=== PATIENT | male | born 1970 | race Caucasian/White ===

== ENCOUNTER 2018-04-08 04:40 | Emergency (ER) | payer BC ==
[2018-04-08] MEDS ORDERED: MORPHINE 4 MG/ML SYR ONE (05:21)
[2018-04-08] MEDS ORDERED: KETOROLAC 30 MG/ML INJ ONE (05:21)
[2018-04-08] MEDS ORDERED: NA CHLORIDE 0.9% 2,000 ML ONE (05:21)
[2018-04-08] MEDS ORDERED: ONDANSETRON 4 MG/2 ML VIAL ONE (05:21)
--- NOTE | 2018-04-08 05:35 | ER ---
Nurse's Notes [facility] Name: Bandar Tabares Age: 47 yrs Sex: Male : 1970 Arrival Date: 04/08/2018 Time: 04:42 Bed 20 Private MD: Diagnosis: Hydronephrosis with renal and ureteral calculous obstruction-4 mm uvj Presentation: 04/08 05:01 Presenting complaint: Patient states: "I woke up yesterday feeling a slight pain in my jd3 back and it got worse throughout the day, it starts in my back and comes around to front.". Transition of care: patient was not received from another setting of care. Onset of symptoms was April 07, 2018. Risk Assessment: Do you want to hurt yourself or someone else? Patient reports no desire to harm self or others. Initial Sepsis Screen: Does the patient meet any 2 criteria? No. Patient's initial sepsis screen is negative. Does the patient have a suspected source of infection? No. Patient's initial sepsis screen is negative. Care prior to arrival: None. 05:01 Method Of Arrival: Wheelchair jd3 05:01 Acuity: JENNIFER 3 jd3 Historical: - Allergies: 05:10 No Known Allergies; jd3 - Home Meds: 05:10 Metoprolol Tartrate Oral [Active]; Vitamin D Oral [Active]; Gas-X oral oral [Active]; jd3 antiacid [Active]; - PMHx: 05:10 reflux; Hypertension; jd3 - PSHx: 05:10 right thumb I\\T\\D MRSA; jd3 - Immunization history:: Adult Immunizations up to date, Flu vaccine is up to date. - Social history:: Smoking status: Patient/guardian denies using tobacco. - Family history:: not pertinent. - Ebola Screening: : Patient negative for fever greater than or equal to 101.5 degrees Fahrenheit, and additional compatible Ebola Virus Disease symptoms. Screenin:10 Abuse screen: Denies threats or abuse. Nutritional screening: No deficits noted. jd3 Tuberculosis screening: No symptoms or risk factors identified. Fall Risk Ambulatory Aid- None/Bed Rest/Nurse Assist (0 pts). Gait- Normal/Bed Rest/Wheelchair (0 pts) Mental Status- Oriented to own ability (0 pts). Total Shukla Fall Scale indicates No Risk (0-24 pts). Assessment: 05:04 General: Appears uncomfortable, Behavior is cooperative, appropriate for age, anxious. jd3 Pain: Complains of pain in left mid back and left low back Pain radiates to suprapubic area Quality of pain is described as sharp, tender, Also complains of nausea. Neuro: Level of Consciousness is awake, alert, obeys commands, Oriented to person, place, time, situation. Cardiovascular: Capillary refill < 3 seconds Patient's skin is warm and dry. Respiratory: Airway is patent Respiratory effort is even, unlabored, Respiratory pattern is regular, symmetrical, Denies shortness of breath. GI: Abdomen is round non-distended, Abd is soft and non tender X 4 quads. Reports lower abdominal pain. : Reports urinary frequency. EENT: No signs and/or symptoms were reported regarding the EENT system. Derm: Skin is intact, Skin is dry, Skin is normal, Skin temperature is warm. Musculoskeletal: Circulation, motion, and sensation intact. Range of motion: intact in all extremities. 06:21 Reassessment: Patient appears in no apparent distress at this time. Patient and/or jd3 family updated on plan of care and expected duration. Pain level reassessed. Patient is alert, oriented x 3, equal unlabored respirations, skin warm/dry/pink. Patient states feeling better. 06:45 Reassessment: Patient appears in no apparent distress at this time. Patient and/or jd3 family updated on plan of care and expected duration. Pain level reassessed. Patient is alert, oriented x 3, equal unlabored respirations, skin warm/dry/pink. Patient states feeling better. Vital Signs: 05:03 BP 114 / 73; Pulse 90; Resp 20 S; Temp 98.6(O); Pulse Ox 100% on R/A; Weight 113.4 kg jd3 (R); Height 6 ft. 2 in. (187.96 cm) (R); Pain 9/10; 06:23 BP 120 / 65; Pulse 67; Resp 16 S; Pulse Ox 97% on R/A; Pain 3/10; jd3 06:50 Pain 3/10; jd3 05:03 Body Mass Index 32.10 (113.40 kg, 187.96 cm) d3 ED Course: 04:42 Patient arrived in ED. ag3 04:50 Scotty Naranjo MD is Attending Physician. terrence 05:01 Julio Olivera, RICK is Primary Nurse. jd3 05:03 Triage completed. jd3 05:04 Arm band placed on. jd3 05:10 Patient has correct armband on for positive identification. Bed in low position. Call jd3 light in reach. Side rails up X2. Adult w/ patient. 05:[address] via stretcher. kw1 05:30 Inserted saline lock: 18 gauge in right antecubital area, using aseptic technique. jd3 Blood collected. 05:32 CT Stone Protocol In Process Unspecified. EDMS 05:34 CT completed. Patient tolerated procedure well. Patient moved back from [place]. kw1 05:34 Shakir Mckinnon MD is Referral Physician. bb 06:45 No provider procedures requiring assistance completed. IV discontinued, intact, jd3 bleeding controlled, No redness/swelling at site. Pressure dressing applied. Administered Medications: 05:21 Drug: TORadol 30 mg Route: IVP; Site: right antecubital; jd3 06:50 Follow up: Response: No adverse reaction jd3 05:21 Drug: morphine 4 mg Route: IVP; Site: right antecubital; jd3 06:50 Follow up: Pain 3/10 Adult; Response: No adverse reaction; Pain is decreased jd3 05:21 Drug: Zofran 4 mg Route: IVP; Site: right antecubital; jd3 06:50 Follow up: Response: No adverse reaction jd3 06:05 Drug: NS 0.9% 1000 ml Route: IV; Rate: 1 bolus; Site: right antecubital; jd3 06:50 Follow up: Response: No adverse reaction; IV Status: Completed infusion; IV Intake: jd3 1000ml 06:05 Drug: NS 0.9% 1000 ml Route: IV; Rate: 125 ml/hr; Site: right antecubital; jd3 06:51 Follow up: Response: No adverse reaction; IV Status: Order to discontinue infusion jd3 06:38 Drug: Flomax 0.4 mg Route: PO; jd3 06:50 Follow up: Response: No adverse reaction; Medication administered at discharge. jd3 Intake: 06:50 IV: 1000ml; Total: 1000ml. jd3 Outcome: 05:34 Discharge ordered by . bb 06:49 Discharged to home ambulatory, with family. jd3 06:49 Condition: stable 06:49 Discharge instructions given to patient, family, Instructed on discharge instructions, follow up and referral plans. medication usage, Demonstrated understanding of instructions, follow-up care, medications, Prescriptions given X 4. 06:51 Patient left the ED. jd3 Signatures: Dispatcher [employer] EDMS Scotty Naranjo MD MD cha Ballard, Brenda, RN RN bb Davies, Jonathon, RN RN jd3 Wilhelm, Kimberly kw1 Carole Asher3
--- NOTE | 2018-04-08 05:35 | EDPHYS ---
Physician Documentation [facility] Name: Bandar Tabares Age: 47 yrs Sex: Male : 1970 Arrival Date: 04/08/2018 Time: 04:42 Bed 20 Private MD: ED Physician Scotty Naranjo HPI: 04/08 05:02 This 47 yrs old Male presents to ER via Unassigned with complaints of Back terrence Pain. 05:02 The patient presents with pain that is acute, with no known mechanism of injury. The terrence symptoms are located in the left low back and left mid back. Onset: The symptoms/episode began/occurred just prior to arrival, this morning. The pain radiates to the left low back and left mid back. Associated signs and symptoms: Pertinent positives: nausea, vomiting, weakness. Modifying factors: The patient symptoms are alleviated by nothing, the patient symptoms are aggravated by nothing. Severity of symptoms: At their worst the symptoms were moderate, severe, in the emergency department the symptoms are unchanged. The patient has not experienced similar symptoms in the past. Historical: - Allergies: 05:10 No Known Allergies; jd3 - Home Meds: 05:10 Metoprolol Tartrate Oral [Active]; Vitamin D Oral [Active]; Gas-X oral oral [Active]; jd3 antiacid [Active]; - PMHx: 05:10 reflux; Hypertension; jd3 - PSHx: 05:10 right thumb I\T\D MRSA; jd3 - Immunization history:: Adult Immunizations up to date, Flu vaccine is up to date. - Social history:: Smoking status: Patient/guardian denies using tobacco. - Family history:: not pertinent. - Ebola Screening: : Patient negative for fever greater than or equal to 101.5 degrees Fahrenheit, and additional compatible Ebola Virus Disease symptoms. ROS: 05:02 Constitutional: Negative for fever, chills, and weight loss, Eyes: Negative for injury, terrence pain, redness, and discharge, ENT: Negative for injury, pain, and discharge, Neck: Negative for injury, pain, and swelling, Cardiovascular: Negative for chest pain, palpitations, and edema, Respiratory: Negative for shortness of breath, cough, wheezing, and pleuritic chest pain, Abdomen/GI: Negative for abdominal pain, nausea, vomiting, diarrhea, and constipation, : Negative for injury, bleeding, discharge, and swelling, MS/Extremity: Negative for injury and deformity, Skin: Negative for injury, rash, and discoloration, Neuro: Negative for headache, weakness, numbness, tingling, and seizure, Psych: Negative for depression, anxiety, suicide ideation, homicidal ideation, and hallucinations, Allergy/Immunology: Negative for hives, rash, and allergies, Endocrine: Negative for neck swelling, polydipsia, polyuria, polyphagia, and marked weight changes, Hematologic/Lymphatic: Negative for swollen nodes, abnormal bleeding, and unusual bruising. 05:02 Back: Positive for decreased range of motion, flank pain, on the left. Exam: 05:02 Constitutional: This is a well developed, well nourished patient who is awake, alert, terrence and in no acute distress. Head/Face: Normocephalic, atraumatic. Eyes: Pupils equal round and reactive to light, extra-ocular motions intact. Lids and lashes normal. Conjunctiva and sclera are non-icteric and not injected. Cornea within normal limits. Periorbital areas with no swelling, redness, or edema. ENT: Nares patent. No nasal discharge, no septal abnormalities noted. Tympanic membranes are normal and external auditory canals are clear. Oropharynx with no redness, swelling, or masses, exudates, or evidence of obstruction, uvula midline. Mucous membranes moist. Neck: Trachea midline, no thyromegaly or masses palpated, and no cervical lymphadenopathy. Supple, full range of motion without nuchal rigidity, or vertebral point tenderness. No Meningismus. Chest/axilla: Normal chest wall appearance and motion. Nontender with no deformity. No lesions are appreciated. Cardiovascular: Regular rate and rhythm with a normal S1 and S2. No gallops, murmurs, or rubs. Normal PMI, no JVD. No pulse deficits. Respiratory: Lungs have equal breath sounds bilaterally, clear to auscultation and percussion. No rales, rhonchi or wheezes noted. No increased work of breathing, no retractions or nasal flaring. Abdomen/GI: Soft, non-tender, with normal bowel sounds. No distension or tympany. No guarding or rebound. No evidence of tenderness throughout. Male : Normal genitalia with no discharge or lesions. Skin: Warm, dry with normal turgor. Normal color with no rashes, no lesions, and no evidence of cellulitis. MS/ Extremity: Pulses equal, no cyanosis. Neurovascular intact. Full, normal range of motion. Neuro: Awake and alert, GCS 15, oriented to person, place, time, and situation. Cranial nerves II-XII grossly intact. Motor strength 5/5 in all extremities. Sensory grossly intact. Cerebellar exam normal. Normal gait. Psych: Awake, alert, with orientation to person, place and time. Behavior, mood, and affect are within normal limits. 05:02 Back: ROM is normal, normal spinal alignment noted, CVA tenderness, is absent, muscle spasm, is appreciated in the left low back and left mid back. Vital Signs: 05:03 BP 114 / 73; Pulse 90; Resp 20 S; Temp 98.6(O); Pulse Ox 100% on R/A; Weight 113.4 kg jd3 (R); Height 6 ft. 2 in. (187.96 cm) (R); Pain 9/10; 06:23 BP 120 / 65; Pulse 67; Resp 16 S; Pulse Ox 97% on R/A; Pain 3/10; jd3 06:50 Pain 3/10; jd3 05:03 Body Mass Index 32.10 (113.40 kg, 187.96 cm) jd3 MDM: 04:50 Patient medically screened. [facility] 04/08 04:57 Order name: Urine Dipstick--Ancillary (enter results) 4 04/08 05:02 Order name: Basic Metabolic Panel; Complete Time: 06:27 [facility] 04/08 05:02 Order name: CBC with Diff; Complete Time: 06:27 [facility] 04/08 05:02 Order name: Creatinine for Radiology; Complete Time: 06:27 [facility] 04/08 05:02 Order name: Hepatic Function; Complete Time: 06:27 [facility] 04/08 05:02 Order name: Lipase; Complete Time: 06:27 [facility] 04/08 05:02 Order name: IV Saline Lock; Complete Time: 05:22 [facility] 04/08 05:02 Order name: CT Stone Protocol [facility] 04/08 05:02 Order name: Labs collected and sent; Complete Time: 05:22 [facility] Administered Medications: 05:21 Drug: TORadol 30 mg Route: IVP; Site: right antecubital; jd3 06:50 Follow up: Response: No adverse reaction jd3 05:21 Drug: morphine 4 mg Route: IVP; Site: right antecubital; jd3 06:50 Follow up: Pain 10 Adult; Response: No adverse reaction; Pain is decreased jd3 05:21 Drug: Zofran 4 mg Route: IVP; Site: right antecubital; jd3 06:50 Follow up: Response: No adverse reaction jd3 06:05 Drug: NS 0.9% 1000 ml Route: IV; Rate: 1 bolus; Site: right antecubital; jd3 06:50 Follow up: Response: No adverse reaction; IV Status: Completed infusion; IV Intake: jd3 1000ml 06:05 Drug: NS 0.9% 1000 ml Route: IV; Rate: 125 ml/hr; Site: right antecubital; jd3 06:51 Follow up: Response: No adverse reaction; IV Status: Order to discontinue infusion jd3 06:38 Drug: Flomax 0.4 mg Route: PO; jd3 06:50 Follow up: Response: No adverse reaction; Medication administered at discharge. jd3 Disposition: 04/08/18 05:34 Discharged to Home. Impression: Hydronephrosis with renal and ureteral calculous obstruction - 4 mm uvj. - Condition is Fair. - Discharge Instructions: Kidney Stones, Kidney Stones, [id number], Hydronephrosis, Dietary Guidelines to Help Prevent Kidney Stones. - Prescriptions for Tylenol- Codeine #3 300-30 mg Oral Tablet - take 2 tablet by ORAL route every 6 hours As needed; 30 tablet. Zofran 4 mg Oral Tablet - take 1 tablet by ORAL route every 12 hours As needed; 20 tablet. Flomax 0.4 mg Oral Capsule, Sust. Release 24 hr - take 1 capsule by ORAL route once daily 1/2 hour following the same meal each day; 30 capsule. Cipro 500 mg Oral Tablet - take 1 tablet by ORAL route every 12 hours for 7 days; 14 tablet. - Medication Reconciliation Form, Thank You Letter, Antibiotic Education, Prescription Opioid Use form. - Follow up: Private Physician; When: 2 - 3 days; Reason: Recheck today's complaints, Continuance of care, Re-evaluation by your physician. Follow up: Shakir Mckinnon; When: 2 - 3 days; Reason: Recheck today's complaints, Re-evaluation by your physician. - Problem is new. - Symptoms have improved. Signatures: Dispatcher [employer] Scotty Reza MD MD cha Ballard, Brenda RN RN Julio Nuñez RN RN jd3 Corrections: (The following items were deleted from the chart) 06:28 05:34 04/08/2018 05:34 Discharged to Home. Impression: Hydronephrosis with renal and terrence ureteral calculous obstruction. Condition is Fair. Discharge Instructions: Kidney Stones, Kidney Stones, Cyxy-ca-Apsv, Hydronephrosis, Dietary Guidelines to Help Prevent Kidney Stones. Prescriptions for Tylenol-Codeine #3 300-30 mg Oral Tablet - take 2 tablet by ORAL route every 6 hours As needed; 30 tablet, Zofran 4 mg Oral Tablet - take 1 tablet by ORAL route every 12 hours As needed; 20 tablet, Flomax 0.4 mg Oral Capsule, Sust. Release 24 hr - take 1 capsule by ORAL route once daily 1/2 hour following the same meal each day; 30 capsule, Cipro 500 mg Oral Tablet - take 1 tablet by ORAL route every 12 hours for 7 days; 14 tablet. and Forms are Medication Reconciliation Form, Thank You Letter, Antibiotic Education, Prescription Opioid Use. Follow up: Private Physician; When: 2 - 3 days; Reason: Recheck today's complaints, Continuance of care, Re-evaluation by your physician. Follow up: Shakir Mckinnon; When: 2 - 3 days; Reason: Recheck today's complaints, Re-evaluation by your physician. Problem is new. Symptoms have improved. mallory 06:51 06:28 04/08/2018 05:34 Discharged to Home. Impression: Hydronephrosis with renal and jd3 ureteral calculous obstruction - 4 mm uvj. Condition is Fair. Discharge Instructions: Kidney Stones, Kidney Stones, [id number], Hydronephrosis, Dietary Guidelines to Help Prevent Kidney Stones. Prescriptions for Tylenol-Codeine #3 300-30 mg Oral Tablet - take 2 tablet by ORAL route every 6 hours As needed; 30 tablet, Zofran 4 mg Oral Tablet - take 1 tablet by ORAL route every 12 hours As needed; 20 tablet, Flomax 0.4 mg Oral Capsule, Sust. Release 24 hr - take 1 capsule by ORAL route once daily 1/2 hour following the same meal each day; 30 capsule, Cipro 500 mg Oral Tablet - take 1 tablet by ORAL route every 12 hours for 7 days; 14 tablet. and Forms are Medication Reconciliation Form, Thank You Letter, Antibiotic Education, Prescription Opioid Use. Follow up: Private Physician; When: 2 - 3 days; Reason: Recheck today's complaints, Continuance of care, Re-evaluation by your physician. Follow up: Shakir Mckinnon; When: 2 - 3 days; Reason: Recheck today's complaints, Re-evaluation by your physician. Problem is new. Symptoms have improved. terrence
[2018-04-08 05:41] LABS: Urine Blood NEGATIVE (NEG); Urine Glucose NEGATIVE (NEG); Urine Protein NEGATIVE (NEG); Urine Specific Gravity >1.030 (1.005-1.030); Urine pH 5.5 (5.0-7.0)
[2018-04-08 05:45] LABS: Absolute Lymphocytes (CBC) 2.3 K/uL (0.7-4.9); Absolute Monocytes 0.6 K/uL (0.1-1.3); Absolute Neutrophil 3.1 K/uL (1.8-8.0); Basophils % 0.3 % (0-1.3); Eosinophils % 1.4 % (0-4.4); Hematocrit 40.3 % (39.6-49.0); Lymphocytes % 37.9 % (15.3-44.8); MCH 30.1 pg (27.0-35.0); MCV 84.8 fL (80-100); MPV 7.6 fL (7.6-11.3); Monocytes % 9.5 % (3.3-12.3); RBC Red Blood Cell Count 4.75 M/uL (4.33-5.43)
[2018-04-08 05:49] LABS: Albumin 3.8 g/dL (3.4-5.0); Bilirubin Direct 0.2 mg/dL (0-0.2); Bilirubin Total 0.7 mg/dL (0.2-1.0); Potassium 3.7 mmol/L (3.5-5.1); Protein, Total 6.9 g/dL (6.4-8.2)
[2018-04-08] MEDS ORDERED: TAMSULOSIN 0.4 MG SR CAP ONE (06:41)
[2018-04-08 07:03] VITALS: TEMP 98.6
[2018-04-08 07:04] VITALS: BP 120/65; O2SAT 97
--- NOTE | 2018-04-08 11:15 | RAD REPORT ---
EXAM DESCRIPTION: CT - Stone Protocol - 04/08/2018 7:02 am CLINICAL HISTORY: Abdominal pain, flank pain A preliminary report was provided at the time of the study and reviewed prior to final report. COMPARISON: CT December 2015 TECHNIQUE: Axial 5 mm thick images were obtained without oral or IV contrast. The [id number]-uw-wvyk span s the entirety of the system including uppermost abdomen and lung bases. All CT scans are performed using dose optimization technique as appropriate and may include automated exposure control or mA/KV adjustment according to patient size. FINDINGS: Mild left-sided hydronephrosis is present secondary to a 4-5 mm left UVJ stone. No other o bstructing or nonobstructing calculi. No right-sided hydronephrosis. No suspicious renal masses. Isod ense masses and pyelonephritis are not excluded on a stone protocol CT scan. No urinary bladder suspi cious finding. Imaged portions of the liver, spleen and pancreas show no suspicious findings on non-contrast imaging . No gallbladder or biliary tree abnormality identified. No significant adrenal finding. No suspicious bowel findings. No appendicitis. No mass or bulky lymphadenopathy. Fat extends into the origin of each inguinal canal. No acute compon ent. No free air, free fluid or inflammatory stranding. No significant bony abnormality. IMPRESSION: Mild left-sided hydronephrosis secondary to a 4-5 mm left UPJ stone. Isodense masses and pyelonephritis are not excluded on stone protocol technique.
== END 2018-04-08 06:51 | disposition home or self-care (01) ==
LOC: ER 04:40
DX: N13.2 Hydronephrosis with renal and ureteral calculous obstruction (principal); I10 Essential (primary) hypertension
CPT/HCPCS: 36415; 74176; 76377; 80048; 80076; 81003; 83690; 85025; 96361; 96374; 96375; 99284; J2405; J7030

== ENCOUNTER 2019-01-06 11:36 | Emergency (ER) | payer BC, OTHER ==
--- OUTSIDE RECORDS SUMMARY | 2019-01-06 11:39 | XMS REPORT | Clinical Summary ---
:1970 Author Organization [facility] Address [address] [place] [address] Care Team Providers Name Role Phone Eladio Willoughby MD Primary Care Provider Allergies Active Allergy Reactions Severity Noted Date Comments Sulfamethoxazole-Trimethoprim Hives 08/23/2016 Medications Medication Sig Dispensed Refills Start Date End Date Status esomeprazole (NexIUM) 40 Take 40 mg by 3 Active MG capsule mouth daily before breakfast. metoprolol succinate XL Take 50 mg by 0 Active (TOPROL-XL) 50 mg 24 hr mouth daily. tablet methocarbamol (ROBAXIN) Take 750 mg by 0 Active 750 MG tablet mouth daily as needed for muscle spasms. aspirin (ECOTRIN) 81 MG Take 81 mg by 0 Active enteric coated tablet mouth daily. cholecalciferol, vitamin Take 1,000 Units 0 Active D3, (VITAMIN D3) 1,000 by mouth daily. unit tablet Active Problems Problem Noted Date Palpitations 07/04/2017 Palpitation 08/23/2016 Pure hypercholesterolemia 08/23/2016 Abnormal EKG 08/23/2016 Chest pain 08/23/2016 Family History Medical History Relation Name Comments No Known Problems Father Hypertension Mother Hypertension Sister Relation Name Status Comments Father Mother Sister Social History Tobacco Use Types Packs/Day Years Used Date Former Smoker Smokeless Tobacco: Former User Alcohol Use Drinks/Week oz/Week Comments Yes Sex Assigned at Date Recorded Not on file Job Start Date Occupation Industry Not on file Not on file Not on file Travel History Travel Start Travel End No recent travel history available. Last Filed Vital Signs Not on file Plan of Treatment Health Maintenance Due Date Last Done Comments INFLUENZA VACCINE 12/27/2018 Results Not on fileafter 01/05/2018 Advance Directives Patient has advance care planning documents on file. For more information, please contact:Tom Murphy[address] [place] [address]
--- NOTE | 2019-01-06 13:50 | RAD REPORT ---
EXAM DESCRIPTION: US - Extremity Venous Uni Ltd - 01/06/2019 1:22 pm CLINICAL HISTORY: Right leg pain COMPARISON: None. TECHNIQUE: Real-time sonographic evaluation of the right lower extremity deep venous systems was per formed. FINDINGS: Normal compressibility, flow augmentation, phasic flow and spontaneous flow are identified in the right lower extremity common femoral, superficial femoral, popliteal and posterior tibial vei ns. No intraluminal filling defects seen. IMPRESSION: No DVT in the right lower extremity.
--- NOTE | 2019-01-06 14:17 | EDPHYS ---
Physician Documentation [facility] Name: Bandar Tabares Age: 48 yrs Sex: Male : 1970 Arrival Date: 01/06/2019 Time: 11:37 Bed 20 Private MD: Eladio Willoughby ED Physician Scotty Naranjo HPI: 01/06 12:19 This 48 yrs old Male presents to ER via Ambulatory with complaints of Leg jmm Swelling. 12:19 The patient presents with swelling. The complaints affect the right calf. Onset: The jmm symptoms/episode began/occurred gradually, 1 day(s) ago. Modifying factors: The symptoms are alleviated by nothing. the symptoms are aggravated by nothing. This is a 48 year old male with a history of htn that presents to the ED with complaints of right leg swelling beginning yesterday. Patient also complains of right great toe pain. Denies injury. Denies chest pain, denies shortness of breath. . Historical: - Allergies: 12:02 Bactrim; iw - Home Meds: 12:02 Metoprolol Tartrate Oral once daily [Active]; iw - PMHx: 12:02 Hypertension; reflux; iw - PSHx: 12:02 right thumb I\T\D MRSA; iw - Immunization history:: Adult Immunizations not up to date. - Social history:: Smoking status: . - Ebola Screening: : Patient negative for fever greater than or equal to 101.5 degrees Fahrenheit, and additional compatible Ebola Virus Disease symptoms Patient denies exposure to infectious person Patient denies travel to an Ebola-affected area in the 21 days before illness onset No symptoms or risks identified at this time. ROS: 12:19 Constitutional: Negative for fever, chills, and weight loss, Cardiovascular: Negative jmm for chest pain, palpitations, and edema, Respiratory: Negative for shortness of breath, cough, wheezing, and pleuritic chest pain. 12:19 MS/extremity: Positive for pain, swelling. 12:19 All other systems are negative. Exam: 12:19 Constitutional: This is a well developed, well nourished patient who is awake, alert, jmm and in no acute distress. Head/Face: atraumatic. Eyes: EOMI, no conjunctival erythema appreciated ENT: Moist Mucus Membranes Neck: Trachea midline, Supple Chest/axilla: Normal chest wall appearance and motion. Cardiovascular: Regular rate and rhythm. No edema appreciated Respiratory: Normal respirations, no respiratory distress appreciated Abdomen/GI: Non distended, soft Back: Normal ROM Skin: General appearance color normal 12:19 Musculoskeletal/extremity: swelling noted to the right calf, right 1st toe ttp, full dorsalis pulse. NVI. 12:19 Skin: Appearance: Color: normal in color, mild erythema noted to the right lower leg. 12:19 Neuro: Orientation: is normal, Mentation: is normal, Memory: is normal. Vital Signs: 12:02 BP 131 / 98; Pulse 82; Resp 16; Temp 98.2; Pulse Ox 98% on R/A; iw MDM: 11:58 Patient medically screened. [facility] 13:59 Data reviewed: vital signs, nurses notes. Counseling: I had a detailed discussion with shahab the patient and/or guardian regarding: the historical points, exam findings, and any diagnostic results supporting the discharge/admit diagnosis, radiology results, the need for outpatient follow up, to return to the emergency department if symptoms worsen or persist or if there are any questions or concerns that arise at home. ED course: Patient is alert and non toxic in appearance. Patient is advised to follow up with pcp. Patient is otherwise given strict return precautions. Patient understood and agrees with the plan of care. . 01/06 12:04 Order name: US Extremity Venous Unilateral Ltd; Complete Time: 13:59 shahab Administered Medications: No medications were administered Disposition: 01/07 10:06 Co-signature as Attending Physician, Scotty Naranjo MD I agree with the assessment and terrence plan of care. Disposition: 01/06/19 14:16 Discharged to Home. Impression: Edema, unspecified. - Condition is Stable. - Discharge Instructions: Peripheral Edema. - Prescriptions for Cephalexin 250 mg Oral Capsule - take 1 capsule by ORAL route every 6 hours for 7 days; 28 capsule. - Medication Reconciliation Form, Thank You Letter, Antibiotic Education, Prescription Opioid Use form. - Follow up: Private Physician; When: 2 - 3 days; Reason: Recheck today's complaints, Continuance of care, Re-evaluation by your physician. Signatures: Dispatcher [employer] Scotty Reza MD MD cha Mickail, Joel, PA PA David Barton LVN LVN Sapna Starkey RN RN iw Corrections: (The following items were deleted from the chart) 01/06 14:30 14:16 01/06/2019 14:16 Discharged to Home. Impression: Edema, unspecified. Condition is em Stable. Forms are Medication Reconciliation Form, Thank You Letter, Antibiotic Education, Prescription Opioid Use. Follow up: Private Physician; When: 2 - 3 days; Reason: Recheck today's complaints, Continuance of care, Re-evaluation by your physician. shahab
--- NOTE | 2019-01-06 14:17 | ER ---
Nurse's Notes [facility] Name: Bandar Tabares Age: 48 yrs Sex: Male : 1970 Arrival Date: 01/06/2019 Time: 11:37 Bed 20 Private MD: Eladio Willoughby Diagnosis: Edema, unspecified Presentation: 01/06 12:01 Presenting complaint: Patient states: right leg swelling since yesterday morning, mild iw swelling from right ankle to calf, denies pain, denies injury. Transition of care: patient was not received from another setting of care. Onset of symptoms was January 05, 2019. Risk Assessment: Do you want to hurt yourself or someone else? Patient reports no desire to harm self or others. Initial Sepsis Screen: Does the patient meet any 2 criteria? No. Patient's initial sepsis screen is negative. Does the patient have a suspected source of infection? No. Patient's initial sepsis screen is negative. Care prior to arrival: None. 12:01 Method Of Arrival: Ambulatory iw 12:01 Acuity: JENNIFER 3 iw Historical: - Allergies: 12:02 Bactrim; iw - Home Meds: 12:02 Metoprolol Tartrate Oral once daily [Active]; iw - PMHx: 12:02 Hypertension; reflux; iw - PSHx: 12:02 right thumb I\T\D MRSA; iw - Immunization history:: Adult Immunizations not up to date. - Social history:: Smoking status: . - Ebola Screening: : Patient negative for fever greater than or equal to 101.5 degrees Fahrenheit, and additional compatible Ebola Virus Disease symptoms Patient denies exposure to infectious person Patient denies travel to an Ebola-affected area in the 21 days before illness onset No symptoms or risks identified at this time. Screenin:10 Abuse screen: Denies threats or abuse. Nutritional screening: No deficits noted. em Tuberculosis screening: No symptoms or risk factors identified. Fall Risk None identified. Assessment: 12:10 General: Appears in no apparent distress. comfortable, Behavior is calm, appropriate em for age, Denies fever. Pain: Denies pain. Neuro: Level of Consciousness is awake, alert, obeys commands, Oriented to person, place, time, situation. Cardiovascular: Denies chest pain, Capillary refill < 3 seconds Patient's skin is warm and dry. Respiratory: Airway is patent Respiratory effort is even, unlabored, Respiratory pattern is regular, symmetrical. GI: Patient currently denies nausea, vomiting. Derm: Skin is intact, is healthy with good turgor, Skin is pink, warm \T\ dry. Musculoskeletal: Capillary refill < 3 seconds, Range of motion: intact in all extremities, Swelling present in right calf. 13:10 Reassessment: Patient appears in no apparent distress at this time. Patient and/or em family updated on plan of care and expected duration. Pain level reassessed. Patient is alert, oriented x 3, equal unlabored respirations, skin warm/dry/pink. warm blanket given, US at bedside Patient denies pain at this time. 14:23 Reassessment: Patient appears in no apparent distress at this time. Patient and/or em family updated on plan of care and expected duration. Pain level reassessed. Patient is alert, oriented x 3, equal unlabored respirations, skin warm/dry/pink. Patient denies pain at this time. Vital Signs: 12:02 BP 131 / 98; Pulse 82; Resp 16; Temp 98.2; Pulse Ox 98% on R/A; iw ED Course: 11:37 Patient arrived in ED. as 11:37 Eladio Willoughby MD is Private Physician. as 11:57 To[facility]ito Hernandez [facility] 11:57 Scotty Naranjo MD is Attending Physician. [facility] 12:02 Triage completed. iw 12:03 Arm band placed on. iw 12:06 David Song LVN is Primary Nurse. em 12:10 Patient has correct armband on for positive identification. Bed in low position. Call em light in reach. Pulse ox on. NIBP on. 13:21 Radiology exam delayed due to tech with stat OUT-pt exam. sg3 13:21 Ultrasound completed. Patient tolerated well. sg3 13:22 US Extremity Venous Unilateral Ltd In Process Unspecified. EDMS 14:29 No provider procedures requiring assistance completed. Patient did not have IV access em during this emergency room visit. Administered Medications: No medications were administered Outcome: 14:16 Discharge ordered by . jmm 14:29 Discharged to home ambulatory. em 14:29 Condition: good 14:29 Discharge instructions given to patient, Instructed on discharge instructions, follow up and referral plans. Demonstrated understanding of instructions, follow-up care, medications, Prescriptions given X 1. 14:30 Patient left the ED. em Signatures: Dispatcher [employer] Toñito Ramon PA PA jmm Munoz, Edgar, REAL ESTATE TRANSACTION MANAGER REAL ESTATE TRANSACTION MANAGER Adelita Vanessa Irene, RICK RN Azra Pina 3
[2019-01-06 15:11] VITALS: BP 131/98; TEMP 98.2; O2SAT 98
== END 2019-01-06 14:30 | disposition home or self-care (01) ==
LOC: ER 11:36
DX: R60.9 Edema, unspecified (principal); I10 Essential (primary) hypertension; Z88.1 Allergy status to other antibiotic agents
CPT/HCPCS: 93971; 99283

== ENCOUNTER 2019-11-25 13:11 | Emergency (ER) | payer BC, OTHER ==
[2019-11-25 13:50] LABS: Absolute Lymphocytes (CBC) 1.8 K/uL (0.7-4.9); Basophils % 0.6 % (0-1.3); Hematocrit 40.7 % (39.6-49.0); Lymphocytes % 31.2 % (15.3-44.8); RBC Red Blood Cell Count 4.71 M/uL (4.33-5.43)
[2019-11-25] MEDS ORDERED: ONDANSETRON 4 MG/2 ML VIAL ONE (14:00)
[2019-11-25] MEDS ORDERED: MORPHINE 4 MG/ML SYR ONE (14:00)
[2019-11-25 14:08] LABS: Albumin 4.3 g/dL (3.4-5.0); Bilirubin Direct 0.2 mg/dL (0-0.2); Bilirubin Total 0.6 mg/dL (0.2-1.0); Potassium 3.9 mmol/L (3.5-5.1); Protein, Total 7.4 g/dL (6.4-8.2)
[2019-11-25 14:13] LABS: Urine Blood NEGATIVE (NEG); Urine Glucose NEGATIVE (NEG); Urine Protein NEGATIVE (NEG); Urine Specific Gravity 1.025 (1.005-1.030); Urine pH 5.5 (5.0-7.0)
--- OUTSIDE RECORDS SUMMARY | 2019-11-25 14:58 | XMS REPORT | Clinical Summary ---
:1970 Author Organization [facility] Address [address] [place] [address] Care Team Providers Name Role Phone Elvin Willoughby MD Primary Care Provider Allergies Active [...] Due Date Last Done Comments INFLUENZA VACCINE 12/28/2019 Results Not on fileafter 11/24/2018 Advance Directives For more information, please contact: [phone] Type Date Recorded Patient Airline Hostess Explanati on Advance Directives, Living Will and Medical Power of Ultrasound Technician
--- NOTE | 2019-11-25 15:38 | RAD REPORT ---
EXAM DESCRIPTION: CT - Abdomen Pelvis W Contrast - 11/25/2019 3:20 pm CLINICAL HISTORY: right lower abdominal pain COMPARISON: Abdomen Pelvis W Contrast dated 01/22/2016 TECHNIQUE: Biphasic, helical CT imaging of the abdomen and pelvis was performed following 100 ml non -ionic IV contrast. No oral contrast administered. All CT scans are performed using dose optimization technique as appropriate and may include automated exposure control or mA/KV adjustment according to patient size. FINDINGS: No suspicious findings in the lung bases. The liver, spleen, and pancreas show no suspicious findings. Gallbladder and biliary tree are also wi thout suspicious finding. Symmetric renal function is seen with no hydronephrosis or suspicious renal mass. No pyelonephritis o r acute parenchymal process. No bladder abnormalities. No adrenal abnormalities. No dilated bowel loops or bowel wall thickening. Appendix is normal. No free air, free fluid or infla mmatory stranding. No hernia, mass or bulky lymphadenopathy. No suspicious bony findings. IMPRESSION: Contrast enhanced CT abdomen and pelvis showing no significant or suspicious finding.
--- NOTE | 2019-11-25 16:12 | ER ---
Nurse's Notes [facility] Name: Bandar Tabares Age: 49 yrs Sex: Male : 1970 Arrival Date: 11/25/2019 Time: 13:16 Bed 19 Private MD: Diagnosis: Lower abdominal pain, unspecified Presentation: 11/24 13:17 Chief complaint: Patient states: RLQ pain started last night and then started having sv right low back pain and nausea. Coronavirus screen: Proceed with normal triage. Patient denies a cough. Patient denies shortness of breath or difficulty breathing. Patient denies measured and/or subjective temperature greater than 100.4F prior to today's visit. Patient denies travel on a cruise ship or to a country the [facility] currently lists as an affected area. Patient denies contact with known and/or suspected case of COVID-19. Ebola Screen: No symptoms or risks identified at this time. Risk Assessment: Do you want to hurt yourself or someone else? Patient reports no desire to harm self or others. Onset of symptoms was November 24, 2019. 13:17 Method Of Arrival: Ambulatory sv 13:17 Acuity: JENNIFER 3 sv 13:18 Initial Sepsis Screen: Does the patient meet any 2 criteria? No. Patient's initial sv sepsis screen is negative. Does the patient have a suspected source of infection? Yes: Acute abdominal pain. Triage Assessment: 13:20 General: Appears in no apparent distress. comfortable, Behavior is calm, cooperative, sv appropriate for age. Pain: Complains of pain in right lower quadrant. Neuro: Level of Consciousness is awake, alert, obeys commands, Oriented to person, place, time, situation, Gait is steady. GI: Reports lower abdominal pain, nausea. Historical: - Allergies: 13:18 Bactrim; sv - PMHx: 13:18 Hypertension; reflux; sv - PSHx: 13:18 right thumb I\T\D MRSA; sv - Immunization history:: Flu vaccine is up to date. - Social history:: Smoking status: Reported history of juuling and/or vaping. Screenin:59 Abuse screen: Denies threats or abuse. Nutritional screening: No deficits noted. Tuberculosis screening: No symptoms or risk factors identified. Fall Risk None identified. Assessment: 13:30 General: Appears uncomfortable, Behavior is calm, cooperative, appropriate for age. ah Pain: Complains of pain in left lower quadrant Pain currently is 5 out of 10 on a pain scale. Quality of pain is described as throbbing, Pain began 1 day ago. Is continuous. Neuro: Level of Consciousness is awake, alert, obeys commands, Oriented to person, place, time, situation, Appropriate for age. Cardiovascular: Capillary refill < 3 seconds Patient's skin is warm and dry. Respiratory: Airway is patent Respiratory effort is even, unlabored. GI: Last BM was November 25, 2019. Bowel sounds present X 4 quads. Abdomen is tender to palpation in left lower quadrant Reports nausea, Patient currently denies diarrhea, vomiting. :. Derm: Skin is intact, is healthy with good turgor, Skin is dry. 14:30 Reassessment: Pt lying in bed with no needs voiced at this time. ah 15:00 Reassessment: Pt states that medications were effective and his nausea is better at the ah moment. 16:00 Reassessment: Patient and/or family updated on plan of care and expected duration. Pain ah level reassessed. Patient is alert, oriented x 3, equal unlabored respirations, skin warm/dry/pink. awaiting orders from provider. NO needs voiced at this time. Vital Signs: 13:18 BP 117 / 85; Pulse 79; Resp 16; Temp 98.7; Pulse Ox 100% ; Weight 108.86 kg; Height 6 sv ft. 2 in. (187.96 cm); 14:00 BP 112 / 71; Pulse 65; Resp 17; Pulse Ox 95% ; ah 15:00 BP 99 / 67; Pulse 56; Resp 18; Pulse Ox 96% ; ah 16:00 BP 109 / 78; Pulse 51; Resp 17; Pulse Ox 100% ; ah 13:18 Body Mass Index 30.81 (108.86 kg, 187.96 cm) sv ED Course: 13:16 Patient arrived in ED. sv 13:17 Triage completed. sv 13:18 Toñito Hernandez PA is PHCP. [facility] 13:18 Scotty Naranjo MD is Attending Physician. [facility] 13:18 Arm band placed on. sv 13:22 Emerald Bowen, RN is Primary Nurse. 13:45 Inserted saline lock: 20 gauge in right antecubital area, using aseptic technique. ah 15:20 CT Abd/Pelvis - IV Contrast Only In Process Unspecified. EDMS 15:59 Patient has correct armband on for positive identification. Bed in low position. Call light in reach. Side rails up X 1. 16:28 No provider procedures requiring assistance completed. IV discontinued, intact, bleeding controlled, No redness/swelling at site. Pressure dressing applied. Administered Medications: 13:55 Drug: morphine 4 mg Route: IVP; Site: right antecubital; 15:55 Follow up: Response: No adverse reaction 13:55 Drug: Zofran (Ondansetron) 4 mg Route: IVP; Site: right antecubital; 15:55 Follow up: Response: No adverse reaction Outcome: 16:12 Discharge ordered by . [facility] 16:28 Discharged to home ambulatory. 16:28 Condition: good 16:28 Discharge instructions given to patient, Instructed on discharge instructions, follow up and referral plans. Demonstrated understanding of instructions, follow-up care. 16:29 Patient left the ED. Signatures: Dispatcher [employer] Keren Rose, RN RN Toñito Hernandez PA PA jmm Harris, Amy, RN RN Corrections: (The following items were deleted from the chart) 13:20 13:18 Pulse 79bpm; Resp 16bpm; Pulse Ox 100%; Temp 98.7F; 108.86 kg; Height 6 ft. 2 sv in.; BMI: 30.8; sv
--- NOTE | 2019-11-25 16:12 | EDPHYS ---
Physician Documentation [facility] Name: Bandar Tabares Age: 49 yrs Sex: Male : 1970 Arrival Date: 11/25/2019 Time: 13:16 Bed 19 Private MD: ROSINA Physician Scotty Naranjo HPI: 11/24 13:46 This 49 yrs old Male presents to ER via Ambulatory with complaints of jmm Abdominal Pain. 13:46 The patient presents with abdominal pain. Onset: The symptoms/episode began/occurred jmm gradually, 1 day(s) ago. The symptoms do not radiate. Associated signs and symptoms: Pertinent positives: nausea, Pertinent negatives: diarrhea, vomiting. The symptoms are described as achy. Modifying factors: The symptoms are alleviated by nothing, the symptoms are aggravated by pressure. The patient has not experienced similar symptoms in the past. Historical: - Allergies: 13:18 Bactrim; sv - PMHx: 13:18 Hypertension; reflux; sv - PSHx: 13:18 right thumb I\T\D MRSA; sv - Immunization history:: Flu vaccine is up to date. - Social history:: Smoking status: Reported history of juuling and/or vaping. ROS: 13:46 Constitutional: Negative for fever, chills, and weight loss, Cardiovascular: Negative jmm for chest pain, palpitations, and edema, Respiratory: Negative for shortness of breath, cough, wheezing, and pleuritic chest pain. 13:46 Abdomen/GI: Positive for abdominal pain, nausea. 13:46 All other systems are negative. Exam: 13:46 Constitutional: This is a well developed, well nourished patient who is awake, alert, jmm and in no acute distress. Chest/axilla: Normal chest wall appearance and motion. Cardiovascular: Regular rate and rhythm. No edema appreciated Respiratory: Normal respirations, no respiratory distress appreciated 13:46 Head/Face: atraumatic. Eyes: EOMI, no conjunctival erythema appreciated ENT: Moist Mucus Membranes Neck: Trachea midline, Supple 13:46 Back: Normal ROM Skin: General appearance color normal MS/ Extremity: Moves all extremities, no obvious deformities appreciated, no edema noted to the lower extremities Neuro: Awake and alert, normal gait Psych: Behavior is normal, Mood is normal, Patient is cooperative and pleasant 13:46 Abdomen/GI: Inspection: 13:46 Abdomen/GI: Bowel sounds: normal, Palpation: soft, mild abdominal tenderness, in the right lower quadrant. Vital Signs: 13:18 BP 117 / 85; Pulse 79; Resp 16; Temp 98.7; Pulse Ox 100% ; Weight 108.86 kg; Height 6 sv ft. 2 in. (187.96 cm); 14:00 BP 112 / 71; Pulse 65; Resp 17; Pulse Ox 95% ; ah 15:00 BP 99 / 67; Pulse 56; Resp 18; Pulse Ox 96% ; ah 16:00 BP 109 / 78; Pulse 51; Resp 17; Pulse Ox 100% ; ah 13:18 Body Mass Index 30.81 (108.86 kg, 187.96 cm) sv MDM: 13:31 Patient medically screened. [facility] 16:06 Data reviewed: vital signs, nurses notes. Counseling: I had a detailed discussion with shahab the patient and/or guardian regarding: the historical points, exam findings, and any diagnostic results supporting the discharge/admit diagnosis, lab results, radiology results, the need for outpatient follow up, to return to the emergency department if symptoms worsen or persist or if there are any questions or concerns that arise at home. ED course: Pain relieved in the ED. Patient is alert and non toxic in appearance in the ED. Patient is otherwise given strict return precautions/ early appendicitis precautions. Patient understood and agrees with the plan of care. . 11/24 13:22 Order name: Basic Metabolic Panel; Complete Time: 14:38 [facility] 11/24 13:22 Order name: CBC with Diff; Complete Time: 13:59 [facility] 11/24 13:22 Order name: Hepatic Function; Complete Time: 14:38 [facility] 11/24 13:22 Order name: Lipase; Complete Time: 14:38 [facility] 11/24 13:49 Order name: Urine Dipstick--Ancillary (enter results) 11/24 13:49 Order name: Urine Dipstick-Ancillary; Complete Time: 14:38 [facility] 11/24 13:22 Order name: IV Saline Lock; Complete Time: 13:48 [facility] 11/24 13:22 Order name: Labs collected and sent; Complete Time: 13:48 [facility] 11/24 13:22 Order name: Urine Dipstick-Ancillary (obtain specimen); Complete Time: 13:48 [facility] 11/24 14:38 Order name: CT Abd/Pelvis - IV Contrast Only; Complete Time: 15:45 [facility] Administered Medications: 13:55 Drug: morphine 4 mg Route: IVP; Site: right antecubital; 15:55 Follow up: Response: No adverse reaction 13:55 Drug: Zofran (Ondansetron) 4 mg Route: IVP; Site: right antecubital; 15:55 Follow up: Response: No adverse reaction Disposition: 11/25 13:15 Co-signature as Attending Physician, Scotty Naranjo MD I agree with the assessment and [facility] plan of care. Disposition: 11/25/19 16:12 Discharged to Home. Impression: Lower abdominal pain, unspecified. - Condition is Stable. - Discharge Instructions: Abdominal Pain, Adult. - Medication Reconciliation Form, Thank You Letter, Antibiotic Education, Prescription Opioid Use form. - Follow up: Private Physician; When: 2 - 3 days; Reason: Recheck today's complaints, Continuance of care, Re-evaluation by your physician. Signatures: Dispatcher [employer] Keren Rose, RN Scotty Hernandez MD MD cha Mickail, Joel, PA PA jmm Harris, Amy RN RN Corrections: (The following items were deleted from the chart) 11/24 16: 16:12 11/25/2019 16:12 Discharged to Home. Impression: Lower abdominal pain, ah unspecified. Condition is Stable. Forms are Medication Reconciliation Form, Thank You Letter, Antibiotic Education, Prescription Opioid Use. Follow up: Private Physician; When: 2 - 3 days; Reason: Recheck today's complaints, Continuance of care, Re-evaluation by your physician. [facility]
[2019-11-25 16:53] VITALS: TEMP 98.7
[2019-11-25 16:57] VITALS: BP 109/78; O2SAT 100
== END 2019-11-25 16:29 | disposition home or self-care (01) ==
LOC: ER 13:11
DX: R10.30 Lower abdominal pain, unspecified (principal); I10 Essential (primary) hypertension; Z88.1 Allergy status to other antibiotic agents; Z87.891 Personal history of nicotine dependence
CPT/HCPCS: 85025; 80048; 36415; 80076; 81003; 83690; 74177; 96375; 96374; 99284; Q9967; J2405

== ENCOUNTER 2024-07-15 11:01 | Day surgery (SDC) | payer BC ==
[2024-07-15] MEDS ORDERED: Ringers Lactate 1,000 ML IV ONE (11:12)
[2024-07-15 11:37] LABS: Absolute Eosinophils 0.2 K/uL (0-0.5); Absolute Lymphocytes (CBC) 1.5 K/uL (0.7-4.9); Absolute Monocytes 0.6 K/uL (0.1-1.3); Basophils % 0.8 % (0-1.3); Eosinophils % 3.2 % (0-4.4); Hematocrit 38.7 % (39.6-49.0); Hemoglobin 13.8 g/dL (13.6-17.9); Lymphocytes % 27.6 % (15.3-44.8); MCH 30.3 pg (27.0-35.0); MCHC 35.6 g/dL (32.0-36.0); MPV 7.3 fL (7.6-11.3); Monocytes % 10.8 % (3.3-12.3); Neutrophils % 57.6 % (41.7-73.7); Nucleated Red Blood Cells % 0.1 % (0-0); Platelets 240 thou/uL (152-406); RBC Red Blood Cell Count 4.55 M/uL (4.33-5.43)
--- NOTE | 2024-07-15 12:34 | RAD REPORT ---
EXAMINATION: TWO VIEW CHEST XR CLINICAL INDICATION: Male, 53 years old. Hypertension. SURGERY TECHNIQUE: 2 view radiographs of the chest were performed. COMPARISON: 04/11/2018 FINDINGS: The lungs are well inflated and clear. No pneumothorax or sizable effusion. The heart is normal in si ze. Mediastinal contours are unremarkable. IMPRESSION: No acute or significant abnormalities.
[2024-07-15] MEDS ORDERED: propofoL 200 MG/20 ML VIAL IV ONE (13:00)
[2024-07-15] MEDS ORDERED: LIDOCAINE 1% MPF 5 ML VIAL ONE (13:00)
[2024-07-15] MEDS ORDERED: KETOROLAC 30 MG/ML INJ ONE (13:00)
[2024-07-15] MEDS ORDERED: MIDAZOLAM HCL 2 MG/2 ML INJ ONE (13:00)
[2024-07-15] MEDS ORDERED: FENTANYL CITR 100 MCG/2 ML ONE (13:00)
[2024-07-15] MEDS: CEFAZOLIN SODIUM 1 GM/VIAL ONE (14:00)
[2024-07-15] MEDS: BUPIVACAINE 0.5% PF 10 ML VIAL ONE (14:09)
[2024-07-15] MEDS ORDERED: BUPIVACAINE 0.5% PF 10 ML VIAL ONE (14:16)
--- NOTE | 2024-07-15 14:20 | P.BOP ---
Preoperative diagnosis: infected tender back subQ mass, cellulitis, abscess Postoperative diagnosis: same Primary procedure: Excisional biopsy of infected tender back subQ mass [id number] Estimated blood loss: <10cc Specimen: mass, pus Findings: mass, abscess Anesthesia: General Complications: None Drain(s): Other (1/2 iodoform) Transferred to: Recovery Room Condition: Good
[2024-07-15] MEDS: MORPHINE 4 MG/ML SYR ONE (14:46)
[2024-07-15] MEDS: CODEINE 30MG/APAP 300MG TAB ONE (15:50)
[2024-07-15 16:39] VITALS: TEMP 97.1; O2SAT 99
[2024-07-15 16:41] VITALS: BP 101/65
== END 2024-07-15 16:30 | disposition home or self-care (01) ==
LOC: OR 11:01
PROVIDERS: ATTEND Surgery
PROC: 0JB70ZZ Excision of Back Subcutaneous Tissue and Fascia, Open Approach (ICD-10-PCS; principal; 2024-07-15 13:51)
DX: L72.0 Epidermal cyst (principal); L08.9 Local infection of the skin and subcutaneous tissue, unspecified; L02.212 Cutaneous abscess of back [any part, except buttock and flank]
CPT/HCPCS: 11406; 93005; 87070; 85025; 80048; 36415; 87205 ×2; 88304; 87075; 71046; J2704; J2003; J2250; J3010; J7120; J0690